=== PATIENT | female | born 1960 | race African-American/Black ===

== ENCOUNTER 2016-04-10 09:42 | Emergency (ER) | payer OTHER ==
[~2016-04-10] VITALS: Ht 160 cm; Wt 98.0 kg
[~2016-04-10 09:42] MED LIST: DICL75TA PO; GARLCAP PO; HYDR50TA3 PO; LISI-515 PO; METO25TA3 PO; SIME1CAP17 PO; ZOLO100T PO
[2016-04-10 09:44] VITALS: BP 202/97; PULSE 56; RESP 49; TEMP 98.1; O2SAT 100
[2016-04-10 09:56] VITALS: BP 179/111; PULSE 56; RESP 18; TEMP 98.1; O2SAT 97
--- NOTE | 2016-04-10 11:03 | PD ---
HPI Chief Complaint: Pain: Acute or Chronic Time Seen by Provider: 10:53 Travel History International Travel<30 days: No Contact w/Intl Traveler<30days: No Traveled to known affect area: No History of Present Illness HPI Is a 56-year-old woman with chronic pain, attributed to fibromyalgia, costochondritis, and chronic low back pain, presents with ongoing chronic low back pain. She was seen recently for chest pain that she rest her fibromyalgia as well. She is given a Percocet for diclofenac which she states helped the chest pain but still has back pain. No other complaints. History Past Medical History Narrative Medical Hypertension Chronic pain Menopausal: Yes : 3 Para: 3 Past Surgical History Surgical History: No Previous Surgery Social History Alcohol Use: Yes (occas) Tobacco Use: No Allergies-Medications (Allergen,Severity, Reaction): Coded Allergies: No Known Allergies (Verified , 04/10/16) Reported Meds & Prescriptions Reported Meds & Active Scripts Active Diclofenac Sodium DR (Diclofenac Sodium) 75 Mg Tabdr 75 Mg PO BID PRN Reported Lisinopril 20 Mg Tab 20 Mg PO DAILY Simethicone 125 Mg Cap 125 Mg PO QID PRN Zoloft (Sertraline HCl) 100 Mg Tab 100 Mg PO DAILY Metoprolol Tartrate 25 Mg Tab 25 Mg PO DAILY Hydrochlorothiazide 50 Mg Tab 50 Mg PO DAILY Garlic/Lecithin 192-650 mg (Garlic & Lecithin) 1 Cap Cap 500 Mg PO DAILY Review of Systems Except as stated in HPI: all other systems reviewed are Neg Physical Exam Narrative GENERAL: 56-year-old woman, no acute distress. SKIN: Warm and dry. HEAD: Atraumatic. Normocephalic. CARDIOVASCULAR: Regular rate and rhythm. No murmur appreciated. RESPIRATORY: No accessory muscle use. Clear to auscultation. Breath sounds equal bilaterally. GASTROINTESTINAL: Abdomen soft, non-tender, nondistended. Hepatic and splenic margins not palpable. MUSCULOSKELETAL: No obvious deformities. No clubbing. No cyanosis. No edema. Data Data Last Documented VS Vital Signs Date Time Temp Pulse Resp B/P Pulse Ox O2 Delivery O2 Flow Rate FiO2 04/10/16 10:06 56 18 04/10/16 09:56 98.1 179/111 97 Orders Electrocardiogram (04/10/16 ) [facility] Medical Decision Making Medical Screen Exam Complete: Yes Emergency Medical Condition: Yes Differential Diagnosis Chronic back pain, fibromyalgia, other Narrative Course 56-year-old woman, chronic pain. We'll give her shot of Toradol, outpatient follow-up. Diagnosis Primary Impression: Back pain Qualified Code: M54.5 - Chronic bilateral low back pain without sciatica Additional Instructions: Follow-up with your primary doctor. Med/Other Pt SpecificInfo: No Change to Meds Disposition: 01 DISCHARGE HOME Condition: Stable Geradro Vasquez MD Apr 10, 2016 11:02
[2016-04-10] MEDS ORDERED: KETOROLAC TROMETHAMINE 30 MG/ML (IVP) VIAL IVP ONE (11:15)
[2016-04-10 11:49] VITALS: BP 133/67; TEMP 98.3
[2016-06-14] MEDS ORDERED: CALC600T10 PO (09:20)
[2016-06-14] MEDS ORDERED: BLAC540C PO (09:20)
[2016-06-14] MEDS ORDERED: NAPR250T PO (09:20)
[2016-06-14] MEDS ORDERED: RANI150T PO ×2 (09:20→09:59)
[2016-06-14] MEDS ORDERED: AMLO10TA2 PO ×2 (09:20→09:57)
[2016-06-14] MEDS ORDERED: CYCL1TAB29 PO (09:52)
[2016-06-14] MEDS ORDERED: NORT10CA PO (09:54)
[2016-06-14] MEDS ORDERED: LISI-515 PO (09:57)
[2016-06-14] MEDS ORDERED: HYDR50TA3 PO (09:59)
[2016-06-14] MEDS ORDERED: METO25TA3 PO (09:59)
[2016-07-24] MEDS ORDERED: HYDR50TA3 PO (09:25)
[2016-08-29] MEDS ORDERED: METO25TA3 PO (11:47)
[2016-08-30] MEDS ORDERED: AMLO10TA2 PO (14:44)
[2016-08-30] MEDS ORDERED: LISI-515 PO (14:44)
== END 2016-04-10 11:40 | disposition home or self-care (01) ==
LOC: NEPE 09:42
DX: M54.5 Low back pain (principal); G89.29 Other chronic pain; I10 Essential (primary) hypertension; Z87.39 Personal history of other diseases of the musculoskeletal system and connective tissue
CPT/HCPCS: 96374; 99283; J1885

== ENCOUNTER → 2016-08-16 | Outpatient (CLI) | payer OTHER ==
[~2016-08-16] MED LIST changes: +AMLO10TA2 PO; +BLAC540C PO; +CALC600T10 PO; +CYCL1TAB29 PO; -DICL75TA PO; +NAPR250T PO; +NORT10CA PO; +RANI150T PO; -ZOLO100T PO
[2016-08-16 09:03] LABS: AUTOMATED NEUTROPHIL # 2.1 TH/MM3 (1.8-7.7); BASOPHIL # 0.1 TH/MM3 (0-0.2); BASOPHIL % 1.4 % (0.0-2.0); EOSINOPHIL # 0.2 TH/MM3 (0-0.4); EOSINOPHIL % 3.8 % (0.0-4.0); HEMO FLAGS DIFF FINAL; LYMPH % 37.6 % (9.0-44.0); LYMPHOCYTE # 1.6 TH/MM3 (1.0-4.8); MEAN CELL VOLUME 83.8 FL (80.0-100.0); MEAN CORPUSCULAR HEMOGLOBIN 26.6 PG (27.0-34.0); MEAN CORPUSCULAR HGB CONC 31.7 % (32.0-36.0); NEUT % 49.2 % (16.0-70.0); PLATELET COUNT 324 TH/MM3 (150-450); RED BLOOD COUNT 4.42 MIL/MM3 (4.00-5.30); RED CELL DISTRIBUTION WIDTH 14.6 % (11.6-17.2); WHITE BLOOD COUNT 4.3 TH/MM3 (4.0-11.0)
[2016-08-16 09:39] LABS: ALKALINE PHOSPHATASE 93 U/L (45-117); ALT (GPT) 25 U/L (10-53); ANION GAP 10 MEQ/L (5-15); AST (GOT) 20 U/L (15-37); BICARBONATE 28.1 MEQ/L (21.0-32.0); BLOOD UREA NITROGEN 12 MG/DL (7-18); CHLORIDE 102 MEQ/L (98-107); GLOMERULAR FILTRATION RATE 86 ML/MIN (>89); GLUCOSE,FASTING 105 MG/DL (74-99); HDL CHOLESTEROL 49.7 MG/DL (40.0-60.0); LDL CHOLESTEROL 102 MG/DL (0-99); POTASSIUM 3.3 MEQ/L (3.5-5.1); SODIUM (NA) 140 MEQ/L (136-145); TOTAL BILIRUBIN ADULT 0.2 MG/DL (0.2-1.0)
== END ==
LOC: CLAB 08:41
PROVIDERS: ATTEND Family Medicine
DX: M79.7 Fibromyalgia (principal); M19.90 Unspecified osteoarthritis, unspecified site; I10 Essential (primary) hypertension; E66.9 Obesity, unspecified; Z72.0 Tobacco use
CPT/HCPCS: 36415; 80053; 80061; 84443; 85025

== ENCOUNTER 2017-11-14 06:55 | Observation (INO) ==
--- NOTE | 2017-11-14 07:28 | ED ---
HPI General Chief complaint: Neuro Symptoms/Deficit Stated complaint: High Blood Pres. Time Seen by Provider: 11/14/17 07:10 History of Present Illness HPI narrative: Patient presents to the emergency department secondary to hypertension and "I think I had a stroke on Sunday." Patient ran out of her metoprolol 25 mg p.o. twice daily approximately 1 week ago. She is also on lisinopril, water pill, and Norvasc. He states that she has been compliant with those medications, but she did not take the Norvasc today. 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 States that on Sunday she started having vision change described as "sickly lines in both eyes. " She states that the symptoms were the initial presentation for her prior CVA. Is also reporting a chronic headache which she is unable to describe. Also reports chest pain, but she was unsure if it was costochondritis or fibromyalgia, but states it is a little bit different from that. Chest pains described as being sternal, started at 3 AM today, intermittent, minutes in duration, unsure of any alleviating or aggravating factors. She denies numbness , tingling, abdominal pain, lower extremity edema, hematuria, but reports back pain and chronic shortness of breath. Related Data Allergies Allergy/AdvReac Type Severity Reaction Status Date / Time No Known Allergies Allergy Uncoded 01/04/17 11:09 Review of Systems Constitutional Reports as per HPI [facility] Medical History Medical History Arthritis (Acute) Costal chondritis (Acute) Fibromyalgia (Acute) HTN (hypertension) (Acute) Stroke (Acute) Social History Social History Substance History: Active Abuse Second Hand Smoke Exposure: No Smoking Status: Former smoker Tobacco Type: Cigarettes How Often Do You Have a Drink Containing Alcohol: Monthly or less Recent Travel in [facility] within the Last 8 Weeks: No Recent Out of Country Travel within the Last 8 Weeks: No Substance Abuse Detail Marijuana: Substance Use Status: Active Route Used Substance Abuse: Inhalation Immunization History Tetanus Immunization: >5 Years Hx Influenza Vaccine This Season: No Exam Narrative Exam Narrative: GENERAL: No acute distress. SKIN: Focused skin assessment warm/dry. HEAD: Atraumatic. Normocephalic. EYES: Pupils equal and round. No scleral icterus. No injection or drainage. Extraocular muscles intact bilaterally. ENT: No nasal bleeding or discharge. Mucous membranes pink and moist. NECK: Trachea midline. No JVD. CARDIOVASCULAR: Regular rate and rhythm. No murmur appreciated. RESPIRATORY: No accessory muscle use. Clear to auscultation. Breath sounds equal bilaterally. GASTROINTESTINAL: Abdomen soft, non-tender, nondistended. Hepatic and splenic margins not palpable. MUSCULOSKELETAL: No obvious deformities. No clubbing. No cyanosis. No edema. NEUROLOGICAL: Awake and alert. No obvious cranial nerve deficits. Motor grossly within normal limits. Normal speech. PSYCHIATRIC: Appropriate mood and affect; insight and judgment normal. Course Initial Documented Vital Signs Temperature 98.8 F 11/14/17 07:02 Pulse Rate 106 H 11/14/17 07:02 Respiratory Rate 16 11/14/17 07:02 Blood Pressure 175/104 H 11/14/17 07:02 Pulse Oximetry 100 11/14/17 07:02 Last Documented Vital Signs Temperature 98.8 F 11/14/17 07:02 Pulse Rate 106 H 11/14/17 07:02 Respiratory Rate 16 11/14/17 07:02 Blood Pressure 175/104 H 11/14/17 07:02 Pulse Oximetry 100 11/14/17 07:02 Medical Decision Making [facility] Narrative Medical decision making narrative: Patient presents to the emergency department with hypertension with reported noncompliance with antihypertensive and chest pain and questionable CVA/TIA. Patient placed on lymphedema therapist, continuous pulse ox, and IV access obtained. Head CT, EKG, chest x-ray, and labs ordered. Head CT: CONCLUSION:1. Findings of an old left MCA infarct with asymmetric cortical atrophy and regional encephalomalacia changes. Old lacunar type infarct in the anterior left external capsule. Ex vacuo dilatation of the adjacent left ventricular system.2. Nothing acute. CXR-FINDINGS: A single AP view of the chest demonstrates the lungs to be symmetrically aerated without evidence of mass, infiltrate or effusion. The cardiomediastinal contours are unremarkable. Osseous structures are intact. CONCLUSION: Negative examination. BP after metoprolol 170/77. Will admit for observation for TIA, chest pain, HTN. Differential Diagnosis Differential Diagnosis: CVA, TIA, ACS, ICH Lab Data Result diagrams: 11/14/17 08:04 11/14/17 08:04 Lab Results 11/14/17 11/14/17 11/14/17 Range/Units 08:04 08:04 08:04 WBC 4.6 (4.0-11.0) th/mm3 RBC 4.14 (4.00-5.30) mil/mm3 Hgb 12.4 (11.6-15.3) gm/dL Hct 35.0 (35.0-46.0) % MCV 84.7 (80.0-100.0) fL MCH 29.9 (27.0-34.0) pg MCHC 35.4 (32.0-36.0) % RDW 13.3 (11.6-17.2) % Plt Count 316 (150-450) th/mm3 MPV 8.1 (7.0-11.0) fL Neut % (Auto) 46.2 (16.0-70.0) % Lymph % (Auto) 41.3 (9.0-44.0) % [place] % (Auto) 7.9 (0.0-8.0) % Eos % (Auto) 3.3 (0.0-4.0) % Baso % (Auto) 1.3 (0.0-2.0) % Neut # (Auto) 2.1 (1.8-7.7) th/mm3 Lymph # (Auto) 1.9 (1.0-4.8) th/mm3 [place] # (Auto) 0.4 (0.0-0.9) th/mm3 Eos # (Auto) 0.2 (0.0-0.4) th/mm3 Baso # (Auto) 0.1 (0.0-0.2) th/mm3 WBC Differential . Differential Comment Auto diff final PT 10.1 (9.8-11.6) sec INR 1.0 Ratio APTT 23.8 L (24.3-30.1) sec Sodium 139 (136-145) meq/L Potassium 3.9 (3.5-5.1) meq/L Chloride 103 (98-107) meq/L Carbon Dioxide 28.6 (21.0-32.0) meq/L Anion Gap 7 (5-15) meq/L BUN 9 (7-18) mg/dL Creatinine 0.89 (0.50-1.00) mg/dL Estimated GFR 79 L (>89) mL/min Random Glucose 104 (74-106) mg/dL Calcium 9.7 (8.5-10.1) mg/dL Total Bilirubin 0.3 (0.2-1.0) mg/dL AST 52 H (15-37) U/L ALT 34 (10-53) U/L Alkaline Phosphatase 82 (45-117) U/L Total Creatine Kinase 525 H (26-192) U/L CK-MB (CK-2) 2.5 (0.5-3.6) ng/mL CK-MB (CK-2) % 0.5 (0.0-4.0) % Troponin I Less than 0.02 L (0.02-0.05) ng/mL Total Protein 8.5 H (6.4-8.2) g/dL Albumin 4.6 (3.4-5.0) g/dL Imaging Data Radiologist's impression: Chest X-Ray 11/14/17 07:22 CONCLUSION: Negative examination. Head CT 11/14/17 07:22 CONCLUSION: 1. Findings of an old left MCA infarct with asymmetric cortical atrophy and regional encephalomalacia changes. Old lacunar type infarct in the anterior left external capsule. Ex vacuo dilatation of the adjacent left ventricular system. 2. Nothing acute. . ECG Data Attestation: I personally reviewed and interpreted this ECG as follows: (Sinus rhythm, rate 88, left axis deviation, QTC 425, normal intervals, slight flattening of T-wave in aVL, ) Discharge Plan Discharge Disposition Patient Disposition: 30 Still Patient Discharge Condition Condition: Stable Discharge Details Diagnosis: Transient cerebral ischemia, Chest pain, Hypertension Physicians Team ED Provider: Cassandra Beebe Primary Care Provider: Primary Care Gavi,Fabby Attending Provider: Rosita Alejandro Status ED Status: Admitted Observation Patient
--- NOTE | 2017-11-14 08:05 | CT ---
EXAM DATE: 11/14/2017 7:59 AM EDT AGE/SEX: 57 years / Female INDICATIONS: High blood pressure, pain right arm pain. Thinks she had a stroke on Sunday. CLINICAL DATA: This is the patient's initial encounter. Patient reports that signs and symptoms have been present for 1 day and indicates a pain score of 0/10. MEDICAL/SURGICAL HISTORY: Cerebrovascular disease. Hypertension. None. RADIATION DOSE: 37.16 CTDI (mGy) COMPARISON: No prior exams available for comparison. TECHNIQUE: CT of the head without contrast. Using automated exposure control and adjustment of the mA and/or kV according to patient size, radiation dose was kept as low as reasonably achievable to ob tain optimal diagnostic quality images. DICOM format image data is available electronically for revi ew and comparison. FINDINGS: Cerebrum: Old lacunar type infarct in the left external capsule. There is also some focal volume los s in the distribution of the left MCA territory with regional encephalomalacia. Ex vacuo dilatation o f the adjacent ventricular system. No evidence of midline shift, mass lesion, hemorrhage or acute in farction. No extraaxial fluid collections are seen. Posterior Fossa: The cerebellum and brainstem are intact. The 4th ventricle is midline. The cerebe llopontine angle is unremarkable. Extracranial: The visualized portion of the orbits is intact. Skull: The calvaria is intact. No evidence of skull fracture. CONCLUSION: 1. Findings of an old left MCA infarct with asymmetric cortical atrophy and regional encephalomalaci a changes. Old lacunar type infarct in the anterior left external capsule. Ex vacuo dilatation of the adjacent left ventricular system. 2. Nothing acute. . Electronically signed by: Nader Lombardo MD 11/14/2017 8:04 AM EDT
[2017-11-14] MEDS ORDERED: Metoprolol Tartrate 25 MG Tablet PO ONE (08:15)
--- NOTE | 2017-11-14 08:19 | XR ---
EXAM DATE: 11/14/2017 8:05 AM EDT AGE/SEX: 57 years / Female INDICATIONS: Chest pain. Slight mid chest pain per patient and shortness of breath this morning. CLINICAL DATA: This is the patient's initial encounter. Patient reports that signs and symptoms have been present for 1 day and indicates a pain score of 2/10. MEDICAL/SURGICAL HISTORY: . Hypertension. Stroke. None. COMPARISON: Chest x-ray dated 04/07/2016. FINDINGS: A single AP view of the chest demonstrates the lungs to be symmetrically aerated without evidence of mass, infiltrate or effusion. The cardiomediastinal contours are unremarkable. Osseous structures a re intact. CONCLUSION: Negative examination. Electronically signed by: Herson Dewitt MD 11/14/2017 8:18 AM EDT
[2017-11-14 08:28] LABS: Baso # (Auto) 0.1 th/mm3 (0.0-0.2); Baso % (Auto) 1.3 % (0.0-2.0); Eos # (Auto) 0.2 th/mm3 (0.0-0.4); Eos % (Auto) 3.3 % (0.0-4.0); Hemoglobin 12.4 gm/dL (11.6-15.3); Lymph # (Auto) 1.9 th/mm3 (1.0-4.8); Lymph % (Auto) 41.3 % (9.0-44.0); Mean Corpuscular HGB Conc 35.4 % (32.0-36.0); Mean Corpuscular Hemoglobin 29.9 pg (27.0-34.0); Mean Corpuscular Volume 84.7 fL (80.0-100.0); Mean Platelet Volume 8.1 fL (7.0-11.0); Mono # (Auto) 0.4 th/mm3 (0.0-0.9); Mono % (Auto) 7.9 % (0.0-8.0); Neut # (Auto) 2.1 th/mm3 (1.8-7.7); Neut % (Auto) 46.2 % (16.0-70.0); Platelet Count 316 th/mm3 (150-450); Red Blood Count 4.14 mil/mm3 (4.00-5.30); Red Cell Distribution Width 13.3 % (11.6-17.2); White Blood Count 4.6 th/mm3 (4.0-11.0)
[2017-11-14 08:40] LABS: Prothrombin Time 10.1 sec (9.8-11.6)
[2017-11-14 08:41] LABS: Activated Partial Thrombo Time 23.8 sec (24.3-30.1)
[2017-11-14 08:49] LABS: Alanine Aminotransferase 34 U/L (10-53); Albumin 4.6 g/dL (3.4-5.0); Alkaline Phosphatase 82 U/L (45-117); Anion Gap 7 meq/L (5-15); Aspartate Aminotransferase 52 U/L (15-37); Blood Urea Nitrogen 9 mg/dL (7-18); Calcium 9.7 mg/dL (8.5-10.1); Carbon Dioxide 28.6 meq/L (21.0-32.0); Chloride 103 meq/L (98-107); Creatine Kinase 525 U/L (26-192); Glomerular Filtration Rate 79 mL/min (>89); Glucose,Random 104 mg/dL (74-106); Sodium 139 meq/L (136-145)
[2017-11-14 08:50] LABS: Total Protein 8.5 g/dL (6.4-8.2)
[2017-11-14 08:53] LABS: Potassium 3.9 meq/L (3.5-5.1)
[2017-11-14 09:05] LABS: CKMB Percent 0.5 % (0.0-4.0); Creatine Kinase MB 2.5 ng/mL (0.5-3.6)
--- NOTE | 2017-11-14 17:31 | P.HPIM ---
History of Present Illness Primary Care Physician: No Primary Care Physician Chief Complaint: hypertension History of Present Illness: This is a 57-year-old female with history of hypertension, previous stroke, fibromyalgia and arthritis presenting with hypertension and assumption that she had a stroke. Per patient, she ran out of metoprolol about a week ago. Last Sunday, she started seeing squiggly lines on both eyes which was very similar to when she had a stroke more than 10 years ago. Today, her blood pressures in the 160s-170s even after taking Norvasc and lisinopril and she decided to go to the emergency department. She denies any numbness, tingling, headache, chest pain, shortness of breath, focal weakness, slurring of speech or altered mental status. She has chronic pain because of her fibromyalgia and says that she takes Aleve for that. Family history: There is prominent history of hypertension in the family Review of Systems All other pertinent systems were reviewed and are negative. PMFSH - History History Provided By: Patient - Medical History Medical History: Medical History (Last Reviewed 11/14/17 @ 17:27 by Rosita Alejandro MD) Arthritis Costal chondritis Fibromyalgia HTN (hypertension) Stroke - Tobacco History Second Hand Smoke Exposure: No Tobacco Use In Past 30 Days: No Smoking Status: Former smoker Tobacco Type: Cigarettes - Alcohol History How Often Do You Have a Drink Containing Alcohol: Monthly or less - Substance Use History Substance History: Active Abuse - Substance Use Type Marijuana Status: Active Route Used: Inhalation - Travel History Recent Travel in the [place] Within the Last 8 Weeks: No Recent Travel Out of the Country Within the Last 8 Weeks: No - Immunization History Tetanus Immunization: >5 Years Hx Influenza Vaccine This Season: No Medications and Allergies Active Medications: Active Medications Amlodipine Besylate (Norvasc) 10 mg PO DAILY [facility] Aspirin (Aspirin) 325 mg PO DAILY [facility] Enalaprilat (Vasotec Inj) 1.25 mg IV.PUSH Q4H PRN PRN Reason: SBP> OR = 180, DBP> OR = 100 Lisinopril (Prinivil) 20 mg PO DAILY [facility] Metoprolol Tartrate (Lopressor) 25 mg PO BID [facility] Naproxen (Naprosyn) 500 mg PO BID [facility] Pravastatin Sodium (Pravachol) 40 mg PO HS [facility] Allergies Allergy/AdvReac Type Severity Reaction Status Date / Time No Known Allergies Allergy Uncoded 01/04/17 11:09 Exam Vital signs: Vital Signs 11/14/17 07:02 11/14/17 10:00 11/14/17 12:47 Temperature 98.8 F 98.9 F 98.3 F Pulse Rate 106 H 58 L 70 Respiratory Rate 16 16 18 Blood Pressure 175/104 H 165/78 H 161/89 H Pulse Oximetry 100 98 11/14/17 12:56 11/14/17 16:49 11/14/17 17:00 Temperature 98.7 F Pulse Rate 62 68 76 Respiratory Rate 16 18 16 Blood Pressure 161/80 H 167/85 H 144/77 H Pulse Oximetry 100 97 98 11/14/17 17:01 Temperature Pulse Rate 95 H Respiratory Rate 16 Blood Pressure 163/87 H Pulse Oximetry 100 Intake & Output 11/13/17 11/14/17 11/14/17 18:59 06:59 18:59 Weight 89.811 kg Narrative: Not in distress, well-nourished, looks stated age PERRL, pink conjunctiva without injection, anicteric Nose without bleeding, airway patent, oropharynx clear Supple neck Normal rate and regular rhythm, no murmurs gallops or rubs appreciated. Clear to auscultation and symmetric bilaterally, normal respiratory effort. Normal bowel sounds, soft, non-tender, nondistended, no guarding. Extremities without clubbing, cyanosis, or edema. No rash of generalized distribution. Skin is warm and dry. Alert, awake and oriented x3. Remote, recent, immediate memory intact. Concentration, judgment and higher function WNL. No cranial deficits: Pupils equal round reactive to light and accommodation, no facial asymmetry, shoulder shrug strong and symmetric, gross hearing intact, tongue midline. Moves all 4 extremities, muscle strength testing 5 over 5 all 4 extremities. Pronator drift negative. Grossly negative cerebellar examination, negative for dysdiadochokinesia. Negative meningeal signs. Gait testing deferred Results - Labs CBC & Chem 7: 11/14/17 08:04 11/14/17 08:04 Labs: Short CBC 11/14/17 Range/Units 08:04 WBC 4.6 (4.0-11.0) th/mm3 Hgb 12.4 (11.6-15.3) gm/dL Hct 35.0 (35.0-46.0) % Plt Count 316 (150-450) th/mm3 BMP 11/14/17 08:04 Sodium 139 Potassium 3.9 Chloride 103 Carbon Dioxide 28.6 BUN 9 Creatinine 0.89 Calcium 9.7 Cardiac Enzymes 11/14/17 Range/Units 08:04 Total Creatine Kinase 525 H (26-192) U/L CK-MB (CK-2) 2.5 (0.5-3.6) ng/mL Troponin I Less than 0.02 L (0.02-0.05) ng/mL Liver Function 11/14/17 Range/Units 08:04 Total Bilirubin 0.3 (0.2-1.0) mg/dL AST 52 H (15-37) U/L ALT 34 (10-53) U/L Alkaline Phosphatase 82 (45-117) U/L Albumin 4.6 (3.4-5.0) g/dL - Imaging Impressions Chest X-Ray 11/14/17 07:22 CONCLUSION: Negative examination. Head CT 11/14/17 07:22 CONCLUSION: 1. Findings of an old left MCA infarct with asymmetric cortical atrophy and regional encephalomalacia changes. Old lacunar type infarct in the anterior left external capsule. Ex vacuo dilatation of the adjacent left ventricular system. 2. Nothing acute. . Caprini VTE Risk Assessment Caprini VTE Risk Assessment: Moderate/High Risk (score >= 2) Caprini Risk Assessment Model: Point Value = 1 Point Value = 2 Point Value = 3 Point Value = 5 Age 41-60 Minor surgery BMI > 25 kg/m2 Swollen legs Varicose veins or History of unexplained or recurrent spontaneous Oral contraceptives or hormone replacement Sepsis (< 1 month) Serious lung disease, including pneumonia (< 1 month) Abnormal pulmonary function Acute myocardial infarction Congestive heart failure (< 1 month) History of inflammatory bowel disease Medical patient at bed rest Age 61-74 Arthroscopic surgery Major open surgery (> 45 min) Laparoscopic surgery (> 45 min) Malignancy Confined to bed (> 72 hours) Immobilizing plaster cast Central venous access Age >= 75 History of VTE Family history of VTE Factor V Leiden Prothrombin [id number] Lupus anticoagulant Anticardiolipin antibodies Elevated serum homocysteine Heparin-induced thrombocytopenia Other congenital or acquired thrombophilia Stroke (< 1 month) Elective arthroplasty Hip, pelvis, or leg fracture Acute spinal cord injury (< 1 month) Prophylaxis Regimen: Total Risk Factor Score Risk Level Prophylaxis Regimen 0-1 Low Early ambulation 2 Moderate Order ONE of the following: *Sequential Compression Device (SCD) *Heparin 5000 units SQ BID 3-4 Higher Order ONE of the following medications: *Heparin 5000 units SQ TID *Enoxaparin/Lovenox 40 mg SQ daily (WT < 150 kg, CrCl > 30 mL/min) *Enoxaparin/Lovenox 30 mg SQ daily (WT < 150 kg, CrCl > 10-29 mL/min) *Enoxaparin/Lovenox 30 mg SQ BID (WT < 150 kg, CrCl > 30 mL/min) AND/OR *Sequential Compression Device (SCD) 5 or more Highest Order ONE of the following medications: *Heparin 5000 units SQ TID (Preferred with Epidurals) *Enoxaparin/Lovenox 40 mg SQ daily (WT < 150 kg, CrCl > 30 mL/min) *Enoxaparin/Lovenox 30 mg SQ daily (WT < 150 kg, CrCl > 10-29 mL/min) *Enoxaparin/Lovenox 30 mg SQ BID (WT < 150 kg, CrCl > 30 mL/min) AND *Sequential Compression Device (SCD) Assessment and Plan - Plan This is a 57-year-old female with history of CVA, hypertension and fibromyalgia Hypertensive urgency-restart Norvasc, lisinopril and metoprolol per home dose, start aspirin. Vasotec as needed. CT scan of the head-unremarkable other than an old left MCA infarct with regional encephalomalacia. Doubt TIA, patient did not have any neurologic deficits. Check MRI of the head, carotid ultrasound and echocardiogram. If these are negative, no further need to consult neurology, follow-up as outpatient, start statin, start aspirin, check lipid panel and hemoglobin A1c. Medications need to be reconciled Fibromyalgia-start Aleve for now. DVT prophylaxis: Lovenox
--- NOTE | 2017-11-14 18:07 | ECG ---
Date Performed: 11/14/2017 Time Performed: 07:30:16 PTAGE: 57 years EKG: Sinus rhythm NONSPECIFIC T-WAVE ABNORMALITY BORDERLINE ECG PREVIOUS TRACING : 04/07/2016 09.52 Since the previous tracing, no significant change noted DOCTOR: Brien Henry Interpretating Date/Time 11/14/2017 18:06:38
--- NOTE | 2017-11-14 18:17 | US ---
EXAM DATE: 11/14/2017 6:06 PM EDT AGE/SEX: 57 years / Female INDICATIONS: Transient ischemic attack. CLINICAL DATA: This is the patient's initial encounter. Patient reports that signs and symptoms have been present for 1 day and indicates a pain score of 0/10. MEDICAL/SURGICAL HISTORY: Hypertension. Arthritis. Costal chondritis. Fibromyalgia. Stroke. No ne. COMPARISON: No prior exams available for comparison. VELOCITY PARAMETERS: ICA/CCA Ratio: Right 1.1 , Left 1.5 ICA: Right 109.2 cm/sec, Left 123.5 cm/sec CCA: Right 96.3 cm/sec, Left 83.1 cm/sec ECA: Right 139.1 cm/sec, Left 78.7 cm/sec Vertebral: Right 38.0 cm/sec antegrade, Left 88.8 cm/sec antegrade FINDINGS: Right Carotid: Mild arteriosclerotic plaque is visualized.The waveforms are within normal limits. Left Carotid: Mild arteriosclerotic plaque is visualized. The waveforms are within normal limits. Other: None. CONCLUSION: 1. Right Internal Carotid Artery: Mild atherosclerosis at the bifurcation without hemodynamically si gnificant narrowing. 2. Left Internal Carotid Artery: Mild atherosclerosis at the bifurcation without hemodynamically sig nificant narrowing. Electronically signed by: Efrem Galdamez MD 11/14/2017 6:16 PM EDT
--- NOTE | 2017-11-14 18:50 | MR ---
EXAM DATE: 11/14/2017 6:35 PM EDT AGE/SEX: 57 years / Female INDICATIONS: CVA. Lightheaded, visual disturbances. CLINICAL DATA: This is the patient's subsequent encounter. Patient reports that signs and symptoms h ave been present for 1 day and indicates a pain score of 0/10. MEDICAL/SURGICAL HISTORY: Hypertension. Tubal ligation. [place] [facility] [place]. . TECHNIQUE: Multiplanar, multisequence examination of the brain was performed without contrast. FINDINGS: Cerebrum: The ventricles are normal for age. No evidence of midline shift, mass lesion, hemorrhage or acute infarction. No extraaxial fluid collections are seen. The pituitary gland and suprasellar cistern are normal in configuration. There is an old left middle cerebral artery distribution infarct with chronic gliosis and encephalomalacia. White Matter: No significant signal abnormalities are seen in the white matter. Posterior Fossa: The cerebellum and brainstem are intact. The 4th ventricle is midline. The cerebel lopontine angle is unremarkable. The cerebellar tonsils are normal in position. Diffusion Imaging: No focal areas of restricted diffusion are seen. No evidence of acute infarction . Extracranial: Mucoperiosteal thickening seen of the visualized right maxillary air cell. CONCLUSION: 1. No acute infarct or other acute intracranial abnormality. 2. 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 3. Right maxillary sinus disease partly seen. Electronically signed by: Efrem Galdamez MD 11/14/2017 6:48 PM EDT
[2017-11-14] MEDS: amLODIPine 10 MG Tablet PO SCH (18:53)
[2017-11-14] MEDS: Metoprolol Tartrate 25 MG Tablet PO SCH (21:39)
[2017-11-14] MEDS: Naproxen 500 MG Tablet PO SCH (21:39)
[2017-11-15 07:54] VITALS: RESP 16
[2017-11-15 08:34] LABS: Chol/HDL Ratio 3.59 Ratio; HDL Cholesterol 48.9 mg/dL (40.0-60.0)
[2017-11-15] MEDS ORDERED: Lisinopril 20 MG Tablet PO SCH (09:00)
[2017-11-15] MEDS ORDERED: Enoxaparin Inj 30 MG/0.3 ML Syringe SQ SCH (09:00)
[2017-11-15] MEDS ORDERED: Aspirin 325 MG Tablet PO SCH (09:00)
[2017-11-15] MEDS: amLODIPine 10 MG Tablet PO SCH (10:21)
[2017-11-15] MEDS: Naproxen 500 MG Tablet PO SCH (10:21)
[2017-11-15] MEDS: Metoprolol Tartrate 25 MG Tablet PO SCH (10:22)
[2017-11-15 12:09] VITALS: TEMP 98.8
[2017-11-15 12:12] VITALS: BP 134/96; PULSE 96; O2SAT 99
--- NOTE | 2017-11-15 12:49 | P.PNIM ---
Subjective Interval history: no overnight events, no further episodes, BP more stable, denies any cp, sob, headache, n/v Physical Exam Vital signs: Vital Signs 11/14/17 12:47 11/14/17 12:56 11/14/17 16:49 Temperature 98.3 F 98.7 F Pulse Rate 70 62 68 Respiratory Rate 18 16 18 Blood Pressure 161/89 H 161/80 H 167/85 H Pulse Oximetry 98 100 97 11/14/17 17:00 11/14/17 17:01 11/14/17 20:49 Temperature 98.5 F Pulse Rate 76 95 H 94 H Respiratory Rate 16 16 17 Blood Pressure 144/77 H 163/87 H 162/80 H Pulse Oximetry 98 100 100 11/15/17 00:03 11/15/17 05:15 11/15/17 07:52 Temperature 98.4 F 98.3 F 98.9 F Pulse Rate 73 86 79 Respiratory Rate 18 18 16 Blood Pressure 114/60 137/77 147/97 H Pulse Oximetry 97 100 100 11/15/17 07:54 11/15/17 07:55 11/15/17 12:08 Temperature 98.8 F Pulse Rate 78 83 91 H Respiratory Rate 16 16 16 Blood Pressure 156/99 H 143/90 H 117/90 Pulse Oximetry 100 100 98 11/15/17 12:09 11/15/17 12:11 Temperature Pulse Rate 95 H 96 H Respiratory Rate 16 16 Blood Pressure 125/86 134/96 H Pulse Oximetry 98 99 Intake & Output 11/14/17 11/15/17 11/15/17 18:59 06:59 18:59 Weight 89.811 kg Other: # Voids 2 Weight On Admission 89.811 kg Narrative: Not in distress, well-nourished, looks stated age PERRL, pink conjunctiva without injection, anicteric Nose without bleeding, airway patent, oropharynx clear Supple neck, no masses or thyromegaly, trachea midline Normal rate and regular rhythm, no murmurs gallops or rubs appreciated. Clear to auscultation and symmetric bilaterally, normal respiratory effort. Normal bowel sounds, soft, non-tender, nondistended, no guarding. Extremities without clubbing, cyanosis, or edema. No rash of generalized distribution. Skin is warm and dry. AAO x3, no cranial nerve deficits, moves all 4 extremities, no focal neurologic deficits Normal mood, appropriate affect Results - Labs CBC & Chem 7: 11/14/17 08:04 11/14/17 08:04 Laboratory Results - last 24 hr 11/15/17 11/15/17 06:30 08:05 POC Glucose 107 Triglycerides 149 Cholesterol 176 LDL Cholesterol, Calc 97 HDL Cholesterol 48.9 Cholesterol/HDL Ratio 3.59 - Imaging Impressions Carotid Doppler Study 11/14/17 00:00 CONCLUSION: 1. Right Internal Carotid Artery: Mild atherosclerosis at the bifurcation without hemodynamically significant narrowing. 2. Left Internal Carotid Artery: Mild atherosclerosis at the bifurcation without hemodynamically significant narrowing. Head MRI 11/14/17 00:00 CONCLUSION: 1. No acute infarct or other acute intracranial abnormality. 2. 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 3. Right maxillary sinus disease partly seen. Assessment and Plan - Plan This is a 57-year-old female with history of CVA, hypertension and fibromyalgia Hypertensive urgency-continue Norvasc, lisinopril and metoprolol, Rx given, continue. CT scan of the head-unremarkable other than an old left MCA infarct with regional encephalomalacia. Doubt TIA, patient did not have any neurologic deficits. MRI of the head negative other than old left MCA infarct. Carotid ultrasound negative, no hemodynamically significant stenosis. Echocardiogram pending., May discharge home. Pending HgbA1c. Fibromyalgia- Aleve for now. DVT prophylaxis: Lovenox Rx given f/u PCP in 1 week
--- NOTE | 2017-11-15 14:35 | ECHRPT ---
Indication: CVA/TIA CONCLUSIONS Normal left ventricular size. Wall thickness is measured at the upper limits of normal. The left ventricular systolic function is low normal EF 50%. Trace mitral valve regurgitation. There is trace tricuspid valve regurgitation. BP: / HR: Rhythm: Sinus MEASUREMENTS (Male / Female) Normal Values Technical Quality:Fair 2D ECHO LV Diastolic Diameter PLAX 4.3 cm 4.2 - 5.9 / 3.9 - 5.3 cm LV Systolic Diameter PLAX 3.4 cm IVS Diastolic Thickness 1.0 cm 0.6 - 1.0 / 0.6 - 0.9 cm LVPW Diastolic Thickness 1.0 cm 0.6 - 1.0 / 0.6 - 0.9 cm LV Relative Wall Thickness 0.5 RV Internal Dim ED PLAX 2.1 cm LVOT Diameter 2.1 cm Aortic Root Diameter 2.4 cm LA Systolic Diameter LX 2.9 cm 3.0 - 4.0 / 2.7 - 3.8 cm DOPPLER AV Peak Velocity 150.0 cm/s AV Peak Gradient 9.0 mmHg AV Mean Gradient 4.0 mmHg AV Velocity Time Integral 22.4 cm LVOT Peak Velocity 114.0 cm/s LVOT Peak Gradient 5.2 mmHg LVOT Velocity Time Integral 18.8 cm AV Area Cont Eq vti 2.9 cm AV Area Cont Eq pk 2.6 cm Mitral E Point Velocity 66.6 cm/s Mitral A Point Velocity 87.9 cm/s Mitral E to A Ratio 0.8 LV E' Lateral Velocity 9.9 cm/s Mitral E to LV E' Lateral Ratio 6.7 LV E' Septal Velocity 6.4 cm/s Mitral E to LV E' Septal Ratio 10.4 PV Peak Velocity 63.2 cm/s PV Peak Gradient 1.6 mmHg FINDINGS LEFT VENTRICLE Normal left ventricular size. Wall thickness is measured at the upper limits of normal. The left ventricular systolic function is low normal EF 50%. RIGHT VENTRICLE Normal right ventricular size and systolic function. LEFT ATRIUM The left atrial size is normal. RIGHT ATRIUM The right atrial size is normal. ATRIAL SEPTUM No atrial level shunt is demonstrated by color flow Doppler interrogation. AORTA The aortic root and proximal ascending aorta are not well visualized. MITRAL VALVE Trace mitral valve regurgitation. AORTIC VALVE Aortic valve appears normal. TRICUSPID VALVE There is trace tricuspid valve regurgitation. PULMONARY VALVE No pulmonary valve regurgitation or stenosis. VESSELS The inferior vena cava is normal in size. PERICARDIUM No pericardial effusion. Padron E. Toan MD (Electronically Signed) Final Date:15 November 2017 14:34
[2017-11-15 17:33] LABS: Hemoglobin A1c 6.3 % (4.3-6.0)
== END 2017-11-15 16:23 | disposition home or self-care (01) ==
LOC: NEDA 06:55 → NEPE 06:55 → NEPHCDU 06:55 → NEDA 13:49 → NEPHCDU 16:06
PROVIDERS: ADMIT Hospitalist; ATTEND Hospitalist